=== PATIENT | female | born 1940 | race Caucasian/White ===

== ENCOUNTER 2016-11-22 13:55 | Observation (INO) | payer MEDICARE ==
[~2016-11-22] VITALS: Ht 162.6 cm; Wt 65.9 kg
[~2016-11-22 13:55] MED LIST: AMBI5TAB PO; ASPI81TA45 PO; LEVO88TA21 PO; MELA5TAB8 PO; PANT40IN3 PO; PLAV75TA PO; TRAM50TA PO; TRIA3AER
[2016-11-22 14:03] VITALS: BP 139/67; PULSE 83; PULSE 85; RESP 16; TEMP 97.9; O2SAT 97
[2016-11-22] MEDS ORDERED: ASPI1TAB91 PO (14:39)
[2016-11-22] MEDS ORDERED: VITA100021 SL (14:39)
[2016-11-22] MEDS ORDERED: MELA1TAB18 PO (14:39)
[2016-11-22] MEDS ORDERED: TRIA1SPR6 EACH NARE (14:39)
[2016-11-22] MEDS ORDERED: ATOR40TA16 PO (14:39)
[2016-11-22] MEDS ORDERED: TRAM50TA PO (14:39)
[2016-11-22] MEDS ORDERED: ZANT150T2 PO (14:39)
[2016-11-22] MEDS ORDERED: GABA600T PO (14:39)
--- NOTE | 2016-11-22 14:51 | PD ---
HPI Chief Complaint: Chest Pain Time Seen by Provider: 14:40 Travel History International Travel<30 days: No Contact w/Intl Traveler<30days: No Traveled to known affect area: No History of Present Illness HPI 76 years old female complains of chest pain. Patient states that she started having left sided chest pain about 3 hours ago. Patient states the pain aching pain started on the left chest with radiation to left arm. Patient denies any nausea vomiting diaphoresis. Patient denies any palpitation. Patient denies any coughing congestion fever chills. Patient states that the pain is worse with deep breathing. Patient states that the pain started at rest. Patient has history of IA 2 years ago status post stents placement. Patient is on aspirin 81 mg daily. Patient has history of dyslipidemia. Patient denies any history of hypertension diabetes. Patient is a nonsmoker. Patient has family history heart disease. On a scale of 1-10 the pain is a 4. PFSH Past Medical History Arthritis: No Anxiety: Yes Cancer: Yes (SKIN CANCERS) Cardiac Catheterization: Yes Cardiovascular Problems: Yes (IA, STENTS) High Cholesterol: Yes Chemotherapy: No Chest Pain: Yes Diabetes: No Diminished Hearing: No Endocrine: Yes Gastrointestinal Disorders: Yes (Constipation at times) Genitourinary: Yes Hepatitis: No Hiatal Hernia: No Hypertension: Yes (HX OF) Immune Disorder: No Implanted Vascular Access Dvce: Yes Medical other: Yes (ACID REFLUX) Musculoskeletal: Yes Neurologic: No Psychiatric: No Reproductive: No Respiratory: No Myocardial Infarction: Yes Radiation Therapy: No Thyroid Disease: Yes (hypothyrodism) Tetanus Vaccination: < 5 Years Influenza Vaccination: Yes ?: Not Menopausal: Yes : 2 Para: 2 Miscarriage: 0 : 0 Ectopic : No Ovarian Cysts: No Tubal Ligation: No Past Surgical History Abdominal Surgery: Yes (APPY) Appendectomy: Yes Body Medical Devices: 2m heart stent Cardiac Surgery: No Coronary Stent: Yes Ear Surgery: No Endocrine Surgery: No Eye Surgery: No Gynecologic Surgery: Yes (BLADDER SUSPENSION) Hysterectomy: Yes (PARTIAL) Oral Surgery: Yes (TONSILLECTOMY) Thoracic Surgery: No Tonsillectomy: Yes Other Surgery: Yes (Hysterectomy, Appendectomy) Family History Family Myocardial Infarction: Yes (FATHER, GRANDMOTHER) Social History Alcohol Use: No (FORMER HEAVY ALCOHOL USE) Tobacco Use: No Substance Use: No Allergies-Medications (Allergen,Severity, Reaction): Coded Allergies: Codeine (Verified Allergy, Intermediate, 11/22/16) Keflex (Verified Allergy, Mild, 11/22/16) Penicillin (Verified Allergy, Mild, Rash, 11/22/16) Stadol (Verified Allergy, Mild, 11/22/16) Sulfa (Verified Allergy, Mild, 11/22/16) Reported Meds & Prescriptions Reported Meds & Active Scripts Active Reported Vitamin B-12 (Cyanocobalamin) 1,000 Mcg Subl 1,000 Mcg SL DAILY Nasacort Allergy 24Hr Nasal (Triamcinolone Nasal) 55 Mcg/Act Spr 1 [place] EACH NARE DAILY PRN Melatonin 10 Mg Tab 10 Mg PO HS PRN Aspirin Adult Low Strength (Aspirin) 81 Mg Tabdr 81 Mg PO HS Gabapentin 600 Mg Tab 1,200 Mg PO TID PRN Atorvastatin (Atorvastatin Calcium) 40 Mg Tab 40 Mg PO DAILY Zantac (Ranitidine HCl) 150 Mg Tab 150 Mg PO BID PRN Tramadol (Tramadol HCl) 50 Mg Tab 50 Mg PO TID PRN Review of Systems General / Constitutional: No: Fever Eyes: No: Visual changes HENT: No: Headaches Cardiovascular: Positive: Chest Pain or Discomfort Respiratory: No: Shortness of Breath Gastrointestinal: No: Abdominal Pain Genitourinary: No: Dysuria Musculoskeletal: No: Pain Skin: No Rash Neurologic: No: Weakness Psychiatric: No: Depression Endocrine: No: Polydipsia Hematologic/Lymphatic: No: Easy Bruising Physical Exam Narrative GENERAL: Well-nourished, well-developed patient. SKIN: Warm and dry. HEAD: Normocephalic. EYES: No scleral icterus. No injection or drainage. NECK: Supple, trachea midline. No JVD or lymphadenopathy. CARDIOVASCULAR: Regular rate and rhythm without murmurs, gallops, or rubs. RESPIRATORY: Breath sounds equal bilaterally. No accessory muscle use. GASTROINTESTINAL: Abdomen soft, non-tender, nondistended. MUSCULOSKELETAL: No cyanosis, or edema. BACK: Nontender without obvious deformity. No CVA tenderness. Neurologic exam normal. Data Data Last Documented VS Vital Signs Date Time Temp Pulse Resp B/P Pulse Ox O2 Delivery O2 Flow Rate FiO2 11/22/16 16:05 80 16 118/66 97 Room Air 11/22/16 14:03 97.9 Orders Electrocardiogram (11/22/16 ) Complete Blood Count With Diff (11/22/16 14:47) Comprehensive Metabolic Panel (11/22/16 14:47) Creatine Kinase (Cpk) (11/22/16 14:47) Troponin I (11/22/16 14:47) B-Type Natriuretic Peptide (11/22/16 14:47) Prothrombin Time / Inr (Pt) (11/22/16 14:47) Act Partial Throm Time (Ptt) (11/22/16 14:47) Chest, Single Ap (11/22/16 14:47) Iv Access Insert/Monitor (11/22/16 14:47) Ecg Monitoring (11/22/16 14:47) Oximetry (11/22/16 14:47) Labs Laboratory Tests Test 11/22/16 14:50 White Blood Count 4.9 TH/MM3 Red Blood Count 3.80 MIL/MM3 Hemoglobin 11.5 GM/DL Hematocrit 34.4 % Mean Corpuscular Volume 90.4 FL Mean Corpuscular Hemoglobin 30.2 PG Mean Corpuscular Hemoglobin 33.4 % Concent Red Cell Distribution Width 14.4 % Platelet Count 228 TH/MM3 Mean Platelet Volume 8.0 FL Neutrophils (%) (Auto) 34.7 % Lymphocytes (%) (Auto) 39.7 % Monocytes (%) (Auto) 14.4 % Eosinophils (%) (Auto) 9.0 % Basophils (%) (Auto) 2.2 % Neutrophils # (Auto) 1.7 TH/MM3 Lymphocytes # (Auto) 1.9 TH/MM3 Monocytes # (Auto) 0.7 TH/MM3 Eosinophils # (Auto) 0.4 TH/MM3 Basophils # (Auto) 0.1 TH/MM3 CBC Comment DIFF FINAL Differential Comment Prothrombin Time 10.6 SEC Prothromb Time International 1.0 RATIO Ratio Activated Partial 23.5 SEC Thromboplast Time Sodium Level 140 MEQ/L Potassium Level 4.1 MEQ/L Chloride Level 104 MEQ/L Carbon Dioxide Level 29.7 MEQ/L Anion Gap 6 MEQ/L Blood Urea Nitrogen 5 MG/DL Creatinine 0.69 MG/DL Estimat Glomerular Filtration 83 ML/MIN Rate Random Glucose 99 MG/DL Calcium Level 9.1 MG/DL Total Bilirubin 0.4 MG/DL Aspartate Amino Transf 32 U/L (AST/SGOT) Alanine Aminotransferase 33 U/L (ALT/SGPT) Alkaline Phosphatase 71 U/L Total Creatine Kinase 161 U/L Troponin I LESS THAN 0.02 NG/ML B-Type Natriuretic Peptide 31 PG/ML Total Protein 7.1 GM/DL Albumin 3.8 GM/DL MDM Medical Decision Making Medical Screen Exam Complete: Yes Emergency Medical Condition: Yes Interpretation(s) 1451 PM. EKG shows sinus rhythm nonspecific ST-T wave change. 1618 p.m. Chest x-ray shows no acute consolidation. CBC within normal limit. CMP within normal limit. Cardiac enzymes are normal. Differential Diagnosis Differential diagnosis including angina, IA, PE, pneumothorax. Narrative Course 76 years old female with chest pain. History of CAD status post IA and stents placement. Diagnosis Primary Impression: Chest pain Qualified Code: R07.9 - Chest pain, unspecified type Salvador Pozo MD Nov 22, 2016 14:51
[2016-11-22 15:04] LABS: AUTOMATED NEUTROPHIL # 1.7 TH/MM3 (1.8-7.7); BASOPHIL # 0.1 TH/MM3 (0-0.2); BASOPHIL % 2.2 % (0.0-2.0); EOSINOPHIL # 0.4 TH/MM3 (0-0.4); HEMATOCRIT 34.4 % (35.0-46.0); HEMO FLAGS DIFF FINAL; LYMPH % 39.7 % (9.0-44.0); LYMPHOCYTE # 1.9 TH/MM3 (1.0-4.8); MEAN CELL VOLUME 90.4 FL (80.0-100.0); MEAN CORPUSCULAR HEMOGLOBIN 30.2 PG (27.0-34.0); MEAN CORPUSCULAR HGB CONC 33.4 % (32.0-36.0); MONO % 14.4 % (0.0-8.0); NEUT % 34.7 % (16.0-70.0); PLATELET COUNT 228 TH/MM3 (150-450); RED CELL DISTRIBUTION WIDTH 14.4 % (11.6-17.2); WHITE BLOOD COUNT 4.9 TH/MM3 (4.0-11.0)
[2016-11-22 15:19] LABS: APTT (PATIENT) 23.5 SEC (24.3-30.1); PROTHROMBIN TIME - PATIENT 10.6 SEC (9.8-11.6)
[2016-11-22 15:33] LABS: ALT (GPT) 33 U/L (10-53); ANION GAP 6 MEQ/L (5-15); AST (GOT) 32 U/L (15-37); BICARBONATE 29.7 MEQ/L (21.0-32.0); BLOOD UREA NITROGEN 5 MG/DL (7-18); CHLORIDE 104 MEQ/L (98-107); GLOMERULAR FILTRATION RATE 83 ML/MIN (>89); POTASSIUM 4.1 MEQ/L (3.5-5.1); SODIUM (NA) 140 MEQ/L (136-145)
[2016-11-22 15:37] LABS: ALKALINE PHOSPHATASE 71 U/L (45-117); CREATINE KINASE 161 U/L (26-192); TOTAL BILIRUBIN ADULT 0.4 MG/DL (0.2-1.0)
[2016-11-22 16:05] VITALS: BP 118/66; PULSE 80; RESP 16; O2SAT 97
--- NOTE | 2016-11-22 16:13 | RADRPT ---
EXAM DATE/TIME: 11/22/2016 15:29 [facility] COMPARISON: CHEST SINGLE AP, October 21, 2015, 23:19. INDICATIONS : Chest pain. MEDICAL HISTORY : Myocardial infarction. SURGICAL HISTORY : Coronary artery stent. ENCOUNTER: Initial ACUITY: 1 day PAIN SCORE: 7/10 LOCATION: Left chest and upper arm FINDINGS: A single view of the chest demonstrates the lungs to be symmetrically aerated without evidence of mas s, infiltrate or effusion. The cardiomediastinal contours are unremarkable. Osseous structures are intact. CONCLUSION: No evidence of acute cardiopulmonary disease. Joe Shaffer MD on November 22, 2016 at 16:12 Board Certified Radiologist. This report was verified electronically.
[2016-11-22] MEDS ORDERED: ACETAMINOPHEN 500 MG CPLT PO PRN (16:30)
[2016-11-22] MEDS ORDERED: ONDANSETRON HCL 4 MG/2 ML VIAL IV PRN (16:30)
[2016-11-22] MEDS ORDERED: SODIUM CHLORIDE 0.9% FLUSH 5 ML FLUSH IVF PRN (16:30)
[2016-11-22] MEDS ORDERED: chlordiazePOXIDE 25 MG CAP PO PRN ×2 (17:00→19:15)
[2016-11-22] MEDS ORDERED: GABAPENTIN 300 MG CAP PO PRN (17:00)
[2016-11-22] MEDS ORDERED: traMADol HCL 50 MG TAB PO PRN (17:00)
[2016-11-22] MEDS ORDERED: FAMOTIDINE 20 MG TAB PO PRN (17:00)
--- NOTE | 2016-11-22 17:02 | HHI.HP ---
[facility] Primary Care Physician Tone Estrada MD Chief Complaint Chest pain History of Present Illness This is a 76-year-old female that presents to ED via private vehicle with a complaint of chest discomfort. She has history of CAD. She states had an OK in the past. Reviewing records she had a stent to the LAD in the past as well as having a heart catheterization August 2014 being a stent to the RCA. The LAD stent was patent at that time. Most recent stress test on her records were a nonischemic Lexiscan 10/22/15. She saw her coal tram driver Dr. Cosme last month for evaluation but cannot recall any recent stress testing in his office. She states that around noon while talking with her daughters and sitting at home she developed a severe discomfort in the center of her chest. It radiated down her left arm. It is still there at this time but not as bad. She states that it started feel quite a bit better when she walked into the emergency department. Currently the discomfort is been there about 5 hours. Found nothing to worsen or improve her symptoms. Her discomfort is mild at this time. Denies recent illness. Denies fevers or chills. She states that she has been taking Librium last couple weeks trying to detox from alcohol and also stop taking Xanax. She's had no Xanax in 2 weeks. No alcohol in 2 weeks. She states that her primary care physician prescribed the Librium which she is taking now just at night. Review of Systems General: Patient denies fevers, chills recent, and recent travel HEENT: Patient denies headache, sore throat, difficulty swallowing. Cardiovascular: Has the chest discomfort as mentioned above. Denies sensation of heart beating rapidly or irregularly. Denies diaphoresis. No syncope. Respiratory: Denies shortness of breath or inspirational chest discomfort. Denies coughing wheezing or hemoptysis. GI: Patient denies nausea, vomiting, diarrhea, abdominal pain, bloody stools. Musculoskeletal: Patient denies joint pain or edema. Denies calf pain or edema. Neurovascular: Patient denies numbness, tingling, weakness in extremities. Denies headache. Endocrine: Denies polyuria and polydipsia. Hematologic: Denies easy bruising. Skin: Denies rash or itching. Past Family Social History Allergies: Coded Allergies: Codeine (Verified Allergy, Intermediate, 11/22/16) Keflex (Verified Allergy, Mild, 11/22/16) Penicillin (Verified Allergy, Mild, Rash, 11/22/16) Stadol (Verified Allergy, Mild, 11/22/16) Sulfa (Verified Allergy, Mild, 11/22/16) Past Medical History CAD with stenting. Hypertension, hyperlipidemia, anxiety, chronic back pain. Denies diabetes. Past Surgical History Heart catheterization 2 with stenting of the LAD initially and then the RCA in 2013. Reported Medications Reported Meds & Active Scripts Active Reported Vitamin B-12 (Cyanocobalamin) 1,000 Mcg Subl 1,000 Mcg SL DAILY [place]ac[place] Allergy 24Hr Nasal (Triamcinolone Nasal) 55 Mcg/Act Spr 1 [place] EACH NARE DAILY PRN Melatonin 10 Mg Tab 10 Mg PO HS PRN Aspirin Adult Low Strength (Aspirin) 81 Mg Tabdr 81 Mg PO HS Gabapentin 600 Mg Tab 1,200 Mg PO TID PRN Atorvastatin (Atorvastatin Calcium) 40 Mg Tab 40 Mg PO DAILY Zantac (Ranitidine HCl) 150 Mg Tab 150 Mg PO BID PRN Tramadol (Tramadol HCl) 50 Mg Tab 50 Mg PO TID PRN Active Ordered Medications Current Medications Medications (Trade) Dose Ordered Sig/Gustavo Route Start Time Stop Time Status Last Admin (NS Flush) 2 ml UNSCH PRN IVF 11/22/16 16:30 (NS Flush) 2 ml BID IVF 11/22/16 21:00 (Tylenol) 500 mg Q4H PRN PO 11/22/16 16:30 (Zofran Inj) 4 mg Q6H PRN IV 11/22/16 16:30 Family History Family history positive for CAD. Social History Patient was drinking 4-6 beers a day for some time. She states that she has had no alcohol for 2 weeks. She also was using Xanax as prescribed which she states was maybe 2-3 times a day but stopped taking that as well 2 weeks ago. She smokes marijuana occasionally her last time using marijuana was about a month ago. Physical Exam Vital Signs Vital Signs Date Time Temp Pulse Resp B/P Pulse Ox O2 Delivery O2 Flow Rate FiO2 11/22/16 16:05 80 16 118/66 97 Room Air 11/22/16 14:03 85 16 98 Room Air 11/22/16 14:03 97.9 83 16 139/67 97 11/22/16 14:03 85 16 139/67 97 Room Air Physical Exam GENERAL: This is a well-nourished, well-developed patient, in no apparent distress. Patient speaks in clear complete sentences. Patient is pleasant. HEENT: Head is atraumatic and normocephalic. Neck is supple without lymphadenopathy and trachea is midline. No JVD or carotid bruits. CARDIOVASCULAR: Regular rate and rhythm without murmurs, gallops, or rubs. RESPIRATORY: Chest wall is very tender to palpate. This is worsening the discomfort she has been having. Clear to auscultation. Breath sounds equal bilaterally. No wheezes, rales, or rhonchi. No use of accessory muscles. GASTROINTESTINAL: Abdomen is nontender, nondistended. Abdomen soft. No obvious pulsatile mass or bruit. No CVA tenderness. Strong femoral pulses bilaterally. Normal bowel sounds in all quadrants. MUSCULOSKELETAL: Patient is moving upper and lower extremities freely. No calf tenderness or edema, no Homans sign. Strong pulses in upper and lower extremities. NEUROLOGICAL: Patient is alert and oriented. Cranial nerves 2-12 are grossly intact. No focal deficits and speech is clear. SKIN: No rash and turgor is normal. Laboratory Laboratory Tests Test 11/22/16 14:50 White Blood Count 4.9 Red Blood Count 3.80 Hemoglobin 11.5 Hematocrit 34.4 Mean Corpuscular Volume 90.4 Mean Corpuscular Hemoglobin 30.2 Mean Corpuscular Hemoglobin 33.4 Concent Red Cell Distribution Width 14.4 Platelet Count 228 Mean Platelet Volume 8.0 Neutrophils (%) (Auto) 34.7 Lymphocytes (%) (Auto) 39.7 Monocytes (%) (Auto) 14.4 Eosinophils (%) (Auto) 9.0 Basophils (%) (Auto) 2.2 Neutrophils # (Auto) 1.7 Lymphocytes # (Auto) 1.9 Monocytes # (Auto) 0.7 Eosinophils # (Auto) 0.4 Basophils # (Auto) 0.1 CBC Comment DIFF FINAL Differential Comment Prothrombin Time 10.6 Prothromb Time International 1.0 Ratio Activated Partial 23.5 Thromboplast Time Sodium Level 140 Potassium Level 4.1 Chloride Level 104 Carbon Dioxide Level 29.7 Anion Gap 6 Blood Urea Nitrogen 5 Creatinine 0.69 Estimat Glomerular Filtration 83 Rate Random Glucose 99 Calcium Level 9.1 Total Bilirubin 0.4 Aspartate Amino Transf 32 (AST/SGOT) Alanine Aminotransferase 33 (ALT/SGPT) Alkaline Phosphatase 71 Total Creatine Kinase 161 Troponin I LESS THAN 0.02 B-Type Natriuretic Peptide 31 Total Protein 7.1 Albumin 3.8 Result Diagram: 11/22/16 1450 11/22/16 1450 Imaging Last Impressions Chest X-Ray 11/22/16 1447 Signed Impressions: Service Date/Time: Tuesday, November 22, 2016 15:29 - CONCLUSION: No evidence of acute cardiopulmonary disease. Joe Shaffer MD Course Initial EKG is sinus rhythm without significant ST segment depressions or elevations. Assessment and Plan Assessment and Plan * Atypical chest pain: Patient does it history of CAD with stenting in the past. However symptoms appear to be musculoskeletal. Her chest wall is very tender which is the same discomfort and is worsened discomfort that she has been having today. She will stay in the chest pain center overnight to rule out with serial cardiac enzymes and EKGs and will be seen by Dr. Holder of cardiology and the chest pain center. I discussed this patient with her coal tram driver Dr. Cosme and he believes that if her discomfort is atypical muscular nature that she could be discharged home in the morning without stress testing and he would follow her in the office. Subsequently if her serial cardiac enzymes and EKGs were to rule out that she be discharged home after being evaluated by Dr. Holder. * History of CAD: Continue current medication follow-up with Dr. Cosme. * Hyperlipidemia: Continue current medication. Patient is agreeable to this plan. She is stable at this time. Austin Clemons Nov 22, 2016 17:02
[2016-11-22] MEDS ORDERED: cloNIDine HCL 0.1 MG TAB PO PRN (17:15)
[2016-11-22] MEDS ORDERED: RESP: ALBUTEROL 2.5 MG/IPRATROPIUM 0.5 MG NEB (PRN) INH (17:15)
[2016-11-22 18:05] VITALS: BP 113/58; PULSE 87; RESP 16; O2SAT 100
[2016-11-22 18:34] LABS: CREATINE KINASE 146 U/L (26-192)
[2016-11-22 18:47] LABS: CKMB 1.5 NG/ML (0.5-3.6)
[2016-11-22 19:52] VITALS: BP 118/62; PULSE 82; RESP 14; O2SAT 9; O2SAT 96
[2016-11-22] MEDS: SODIUM CHLORIDE 0.9% FLUSH 5 ML FLUSH IVF SCH (21:00)
[2016-11-22 22:19] LABS: CREATINE KINASE 153 U/L (26-192)
[2016-11-22 22:31] LABS: CKMB 1.2 NG/ML (0.5-3.6)
[2016-11-22 23:20] VITALS: BP 114/70; PULSE 74; RESP 18; O2SAT 100
[2016-11-22] MEDS ORDERED: ACETAMINOPHEN 325 MG TAB PO ONE (23:45)
[2016-11-23] VITALS (7 sets, daily range): BP systolic 122–151; BP diastolic 58–71; PULSE 76–85; RESP 12–20; TEMP 97.6–98.7; O2SAT 97–99
[2016-11-23] MEDS: SODIUM CHLORIDE 0.9% FLUSH 5 ML FLUSH IVF SCH (08:42)
[2016-11-23] MEDS ORDERED: ATORVASTATIN 40 MG TAB PO SCH (09:00)
[2016-11-23] MEDS ORDERED: KETOROLAC TROMETHAMINE 30 MG/ML (IVP) VIAL IV PUSH ONE (09:00)
--- NOTE | 2016-11-23 12:32 | HHI.DCPOC ---
Discharge Care Plan Diagnosis: (1) Atypical chest pain (2) Hx of coronary artery disease (3) History of coronary artery stent placement Goals to Promote Your Health * To prevent worsening of your condition and complications * To maintain your health at the optimal level Directions to Meet Your Goals Take your medications as prescribed Follow your dietary instruction Follow activity as directed Keep your appointments as scheduled Take your immunizations and boosters as scheduled If your symptoms worsen call your PCP, if no PCP go to Urgent Care Center or Emergency Room Smoking is Dangerous to Your Health. Avoid second hand smoke Call the 24-hour hour crisis hotline for domestic abuse at Zahida Johnson Nov 23, 2016 12:32
--- NOTE | 2016-11-23 14:42 | EKG ---
Date Performed: 11/22/2016 Time Performed: 19:53:05 PTAGE: 76 years EKG: Sinus rhythm LOW QRS VOLTAGE IN PRECORDIAL LEADS BORDERLINE ECG PREVIOUS TRACING : 11/22/2016 16.30 Since previous tracing, no significant change noted DOCTOR: John Holder Interpretating Date/Time 11/23/2016 14:40:35
--- NOTE | 2016-11-23 14:43 | EKG ---
Date Performed: 11/22/2016 Time Performed: 16:30:45 PTAGE: 76 years EKG: Sinus rhythm LOW QRS VOLTAGE IN PRECORDIAL LEADS BORDERLINE ECG PREVIOUS TRACING : 11/22/2016 13.06 Since previous tracing, no significant change noted DOCTOR: John Holder Interpretating Date/Time 11/23/2016 14:42:41
--- NOTE | 2016-11-23 14:45 | EKG ---
Date Performed: 11/22/2016 Time Performed: 13:06:53 PTAGE: 76 years EKG: Sinus rhythm LOW QRS VOLTAGE IN PRECORDIAL LEADS BORDERLINE ECG PREVIOUS TRACING : 04/04/2016 08.52 Since previous tracing, no significant change noted DOCTOR: John Holder Interpretating Date/Time 11/23/2016 14:44:20
--- NOTE | 2016-11-23 15:13 | PD.CARD.PN ---
Subjective Subjective Remarks No complaints. Slept well throughout evening. No chest pain. Objective Vital Signs / I&O Vital Signs Date Time Temp Pulse Resp B/P Pulse Ox O2 Delivery O2 Flow Rate FiO2 11/23/16 11:22 97.9 79 20 151/71 99 11/23/16 08:00 85 11/23/16 07:45 98.7 80 18 137/63 97 11/23/16 04:01 84 11/23/16 02:31 78 11/23/16 02:26 97.6 76 18 122/58 98 11/23/16 01:24 76 12 122/68 98 Room Air 11/22/16 23:20 74 18 114/70 100 Room Air 11/22/16 19:52 82 14 118/62 96 Room Air 11/22/16 18:05 87 16 113/58 100 Room Air 11/22/16 16:05 80 16 118/66 97 Room Air Physical Exam GENERAL: Alert, NAD, pleasant CV: RRR, without murmur, rub, gallop, no JVD, S1-S2 no S3-S4. RESP: Clear lungs throughout bilateral, no crackles, wheeze, rhonchi, symmetrical chest rise, nonlabored, able to speak in full sentences EXT: Pulses +24, no dependent edema Laboratory Laboratory Tests Test 11/22/16 11/22/16 17:45 20:30 Total Creatine Kinase 146 U/L 153 U/L Creatine Kinase MB 1.5 NG/ML 1.2 NG/ML Troponin I 0.06 NG/ML 0.07 NG/ML Assessment and Plan Assessment and Plan #1 chest painpatient's career guidance counselor, Dr. Levy, notified of troponin levels throughout evening. After discussing assessment, EKGs, and labs with career guidance counselor, no further cardiac testing required. If chemical stress test completed, Dr. levy would most likely not perform cardiac catheterization at this time. Chest discomfort musculoskeletal in nature. Patient should follow with career guidance counselor on outpatient basis. Discussed in length with patient. Patient seen and evaluated by Dr. John Holder. #2 Musculoskeletal painToradol 30 mg 1 dose. Instructed to use naproxen or ibuprofen [id number] for the next 3 days, with food. May use warm heat to chest wall. Zahida Johnson Nov 23, 2016 15:13
== END 2016-11-23 13:25 | disposition home or self-care (01) ==
LOC: NEPA 13:55 → NEDA 16:22 → NEDH 21:10 → NEPGCP 11-23 01:48
PROVIDERS: ADMIT Internal Medicine Cardiovascular Disease; ATTEND Internal Medicine Cardiovascular Disease
DX: R07.89 Other chest pain (principal); I25.10 Atherosclerotic heart disease of native coronary artery without angina pectoris; E78.5 Hyperlipidemia, unspecified; Z79.82 Long term (current) use of aspirin; I10 Essential (primary) hypertension; F41.9 Anxiety disorder, unspecified; Z95.5 Presence of coronary angioplasty implant and graft; Z88.6 Allergy status to analgesic agent; Z88.1 Allergy status to other antibiotic agents; Z88.0 Allergy status to penicillin; Z88.2 Allergy status to sulfonamides; Z85.828 Personal history of other malignant neoplasm of skin
CPT/HCPCS: 71010; 80053; 82550; 82552; 83880; 84484; 85025; 85610; 85730; 93005; 99285; G0378; J1885